=== PATIENT | female | born 1990 | race Caucasian/White ===

== ENCOUNTER 2016-09-02 14:17 | Emergency (ER) | payer MEDICAID ==
[~2016-09-02] VITALS: Ht 154.9 cm; Wt 86.2 kg
[2016-09-02 14:21] VITALS: BP 130/90
--- NOTE | 2016-09-02 15:04 | NUR ---
26/F BIB SELF C/O HEADACHE & COUGH X 2 WEEKS.DENIES N/V/D; SKIN IS PINK/WARM/DRY; AAOX4 WITH EVEN AND STEADY GAIT; LUNGS CLEAR BL; HR EVEN AND REGULAR; PT DENIES ANY FEVER, CP, SOB, OR COUGH AT THIS TIME; PATIENT STATES PAIN OF 9/10 AT THIS TIME; VSS; PATIENT POSITIONED FOR COMFORT; HOB ELEVATED; BEDRAILS UP X2; BED DOWN. ER MD MADE AWARE OF PT STATUS.
[2016-09-02] MEDS ORDERED: ACETAMINOPHEN EXTRA STRENGTH 500 MG TAB PO ONE (15:15)
[2016-09-02 15:39] VITALS: BP 121/88
--- NOTE | 2016-09-02 15:39 | NUR ---
Patient discharged with v/s stable. Written and verbal after care instructions given and explained. Patient alert, oriented and verbalized understanding of instructions. Ambulatory with steady gait. All questions addressed prior to discharge. ID band removed. Patient advised to follow up with PMD. Rx of AZITHROMYCIN, TYLENOL & GUAIATUSSIN AC 100 MG-10 MG/5ML SOLUTION given. Patient educated on indication of medication including possible reaction and side effects. Opportunity to ask questions provided and answered.
== END 2016-09-02 15:39 | disposition home or self-care (01) ==
LOC: MED 14:17
DX: J20.9 Acute bronchitis, unspecified (principal); R03.0 Elevated blood-pressure reading, without diagnosis of hypertension

== ENCOUNTER 2018-01-15 10:30 | Emergency (ER) | payer MEDICAID, OTHER ==
[~2018-01-15] VITALS: Ht 154.9 cm; Wt 72.1 kg
[2018-01-15 10:31] VITALS: BP 119/79
[2018-01-15] MEDS ORDERED: DEXAMETHASONE 10 MG/ML VIAL IVP ONE (11:35)
[2018-01-15] MEDS ORDERED: KETOROLAC 30 MG/ML VIAL IVP ONE (11:35)
[2018-01-15] MEDS ORDERED: METOCLOPRAMIDE 10 MG/2 ML INJ VIAL IVP ONE (11:35)
[2018-01-15] MEDS ORDERED: NACL 0.9% 500 ML IV ONE (11:35)
[2018-01-15] MEDS ORDERED: diphenhydrAMINE 50 MG/ML VIAL IVP ONE (11:35)
[2018-01-15] MEDS ORDERED: IBUPROFEN 600 MG TAB PO ONE (11:55)
[2018-01-15 12:10] LABS: HEMATOCRIT 40.2 % (36-48); HEMOGLOBIN 13.4 g/dL (12.0-16.0); RED BLOOD CELL COUNT(AUTO) 4.71 MIL/uL (4.20-5.40); WHITE BLOOD COUNT (AUTO) 7.7 K/uL (4.8-10.8)
[2018-01-15 12:11] LABS: LYMPHOCYTES % (AUTO) 18.6 % (20.5-51.1); MEAN CORPUSCULAR HEMOGLOBIN 28 pg (27-31); MEAN CORPUSCULAR HGB CONC 33 g/dL (33-37); MEAN CORPUSCULAR VOLUME 85.4 fL (80-94); MONOCYTES % (AUTO) 7.1 % (1.7-9.3); NEUTROPHILS % (AUTO) 68.3 % (42.2-75.2); PLATELET COUNT (AUTO) 246 K/uL (140-450); RED CELL DISTRIBUTION WIDTH 13.4 % (11.6-13.7)
[2018-01-15 12:12] LABS: APPEARANCE,URINE HAZY (CLEAR); BILIRUBIN,URINE NEGATIVE (NEGATIVE); BLOOD, URINE NEGATIVE (NEGATIVE); COLOR,URINE YELLOW (YELLOW); LEUKOCYTE ESTERASE ,URINE 2+ (NEGATIVE); NITRITE, URINE NEGATIVE (NEGATIVE); UGLUCOSE NEGATIVE (NEGATIVE)
[2018-01-15 12:21] LABS: BARBITURATE, URINE NEG. ng/ml (NEG <=200); BENZODIAZEPINE, URINE NEG. ng/mL (NEG <=200)
[2018-01-15 12:25] LABS: ALBUMIN 3.5 g/dL (3.4-5.0); ANION GAP 11.8 (8-16); CARBON DIOXIDE 26.1 mmol/L (21-32); CREATININE 0.9 mg/dL (0.6-1.3); POTASSIUM 3.9 mmol/L (3.5-5.1); TOTAL BILIRUBIN 0.3 mg/dL (0.0-1.0)
[2018-01-15 12:35] VITALS: BP 120/82
[2018-01-15 12:46] LABS: CANNABINOID, URINE NEG. ng/mL (NEG <=50); COCAINE, URINE NEG. ng/mL (NEG <=300); OPIATE, URINE NEG. ng/mL (NEG <=2000); PHENCYCLIDINE SCREEN,URINE NEG. ng/mL (NEG <=25)
[2018-01-15 13:16] LABS: RBC,URINE 0-5 (RARE) /HPF (0-5)
[2018-01-15 13:18] LABS: WBC,URINE 6-15 (FEW) /HPF (0-5)
== END 2018-01-15 12:35 | disposition home or self-care (01) ==
LOC: MED 10:30
DX: G44.209 Tension-type headache, unspecified, not intractable (principal); Z90.89 Acquired absence of other organs
CPT/HCPCS: 36415; 80053; 80305; 81001; 81025; 85025; 87086; 99284

== ENCOUNTER 2020-07-09 05:05 | Emergency (ER) | payer MEDICAID, OTHER ==
[~2020-07-09] VITALS: Ht 154.9 cm; Wt 72.6 kg
--- NOTE | 2020-07-09 05:18 | NUR ---
TO CHAIR A AMBULATORY
--- NOTE | 2020-07-09 05:35 | NUR ---
SEEN AND EXAMINED BY SABRINA
[2020-07-09] MEDS ORDERED: methylPREDNISolone SS 125 MG/2 ML VIAL IM ONE (05:55)
--- NOTE | 2020-07-09 05:58 | NUR ---
MEDICATED PER [facility] ORDER, TOLERATED WELL.
[2020-07-09 06:30] VITALS: BP 113/55
--- NOTE | 2020-07-09 06:30 | NUR ---
Patient discharged with v/s stable. Written and verbal after care instructions given and explained. Patient alert, oriented and verbalized understanding of instructions. Ambulatory with steady gait. All questions addressed prior to discharge. ID band removed. Patient advised to follow up with PMD. Rx of LOTRISONE, PERMETHRIN given. Patient educated on indication of medication including possible reaction and side effects. Opportunity to ask questions provided and answered.
== END 2020-07-09 06:30 | disposition home or self-care (01) ==
LOC: MED 05:05
DX: R21 Rash and other nonspecific skin eruption (principal); L29.9 Pruritus, unspecified
CPT/HCPCS: 96372; 99283; J2930

== ENCOUNTER 2020-07-12 23:32 | Emergency (ER) | payer MEDICAID ==
[~2020-07-12] VITALS: Ht 154.9 cm; Wt 72.6 kg
[2020-07-12 23:35] VITALS: BP 114/79
[2020-07-13 00:20] VITALS: BP 114/79
--- NOTE | 2020-07-13 00:20 | NUR ---
Patient discharged with v/s stable. Written and verbal after care instructions given and explained. Patient alert, oriented and verbalized understanding of instructions. Ambulatory with steady gait. All questions addressed prior to discharge. ID band removed. Patient advised to follow up with PMD. Rx of benadryl, prednisone given. Patient educated on indication of medication including possible reaction and side effects. Opportunity to ask questions provided and answered.
== END 2020-07-13 00:20 | disposition home or self-care (01) ==
LOC: MED 23:32
DX: R21 Rash and other nonspecific skin eruption (principal); L29.9 Pruritus, unspecified
CPT/HCPCS: 99283

== ENCOUNTER 2021-03-28 23:34 | Emergency (ER) | payer MEDICAID, OTHER ==
[~2021-03-28] VITALS: Ht 154.9 cm; Wt 67.1 kg
[2021-03-28 23:41] VITALS: BP 117/79
--- NOTE | 2021-03-29 00:02 | NUR ---
PT IN TRIAGE FOR EKG.
--- NOTE | 2021-03-29 01:29 | NUR ---
PT AMBULATED TO BED 5
[2021-03-29 02:16] LABS: BASOPHILS % (AUTO) 0.3 % (0.0-2.0); EOSINOPHILS # (AUTO) 0.2 K/uL (0-0.4); EOSINOPHILS % (AUTO) 2.8 % (0.0-4.0); HEMATOCRIT 35.7 % (36-48); HEMOGLOBIN 11.5 g/dL (12.0-16.0); LYMPHOCYTES # (AUTO) 1.9 K/uL (2.5-16.5); LYMPHOCYTES % (AUTO) 29.9 % (20.5-51.1); MEAN CORPUSCULAR HEMOGLOBIN 25 pg (27-31); MEAN CORPUSCULAR HGB CONC 32 g/dL (33-37); MEAN CORPUSCULAR VOLUME 78.9 fL (80-94); MONOCYTES # (AUTO) 0.5 K/uL (0.8-1.0); MONOCYTES % (AUTO) 7.5 % (1.7-9.3); NEUTROPHILS # (AUTO) 3.8 K/uL (1.8-7.7); NEUTROPHILS % (AUTO) 59.5 % (42.2-75.2); PLATELET COUNT (AUTO) 260 K/uL (140-450); RED BLOOD CELL COUNT(AUTO) 4.53 MIL/uL (4.20-5.40); RED CELL DISTRIBUTION WIDTH 14.4 % (11.6-13.7); WHITE BLOOD COUNT (AUTO) 6.4 K/uL (4.8-10.8)
[2021-03-29 02:16] LABS: APPEARANCE,URINE CLEAR (CLEAR); BILIRUBIN,URINE NEGATIVE (NEGATIVE); BLOOD, URINE NEGATIVE (NEGATIVE); COLOR,URINE YELLOW (YELLOW); LEUKOCYTE ESTERASE ,URINE NEGATIVE (NEGATIVE); NITRITE, URINE NEGATIVE (NEGATIVE); UGLUCOSE NEGATIVE (NEGATIVE)
[2021-03-29 02:37] LABS: ALBUMIN 3.6 g/dL (3.4-5.0); ANION GAP 13.7 (8-16); CREATININE 0.8 mg/dL (0.6-1.3); FREE T4 (FREE THYROXINE) 0.94 ng/dL (0.76-1.46); POTASSIUM 3.7 mmol/L (3.5-5.1); THYROID STIMULATING HORMONE 5.09 uIU/mL (0.34-3.74); TOTAL BILIRUBIN 0.2 mg/dL (0.0-1.0)
--- NOTE | 2021-03-29 03:24 | NUR ---
Patient discharged with v/s stable. Written and verbal after care instructions given and explained. Patient verbalized understanding. Ambulatory with steady gait. ID band removed. All questions addressed prior to discharge. Advised to follow up with PMD.
[2021-03-29 03:26] VITALS: BP 105/65
== END 2021-03-29 03:24 | disposition home or self-care (01) ==
LOC: MED 23:34
DX: R00.2 Palpitations (principal); R42 Dizziness and giddiness; Z98.890 Other specified postprocedural states
CPT/HCPCS: 36415; 80053; 81003; 81025; 84439; 84443; 84484; 85025; 93005; 99284

== ENCOUNTER 2021-09-28 22:40 | Emergency (ER) | payer OTHER ==
[~2021-09-28] VITALS: Ht 154.9 cm; Wt 66.7 kg
[2021-09-28 23:01] VITALS: BP 112/70
--- NOTE | 2021-09-28 23:24 | NUR ---
PT TAKEN TO BED 5
[2021-09-28 23:25] LABS: BASOPHILS % (AUTO) 0.3 % (0.0-2.0); EOSINOPHILS # (AUTO) 0.1 K/uL (0-0.4); EOSINOPHILS % (AUTO) 1.1 % (0.0-4.0); HEMATOCRIT 34.1 % (36-48); HEMOGLOBIN 10.4 g/dL (12.0-16.0); LYMPHOCYTES # (AUTO) 1.9 K/uL (2.5-16.5); LYMPHOCYTES % (AUTO) 19.9 % (20.5-51.1); MEAN CORPUSCULAR HEMOGLOBIN 21 pg (27-31); MEAN CORPUSCULAR HGB CONC 30 g/dL (33-37); MONOCYTES # (AUTO) 0.8 K/uL (0.8-1.0); NEUTROPHILS # (AUTO) 6.8 K/uL (1.8-7.7); NEUTROPHILS % (AUTO) 70.7 % (42.2-75.2); PLATELET COUNT (AUTO) 313 K/uL (140-450); RED BLOOD CELL COUNT(AUTO) 4.87 MIL/uL (4.20-5.40); RED CELL DISTRIBUTION WIDTH 19.1 % (11.6-13.7); WHITE BLOOD COUNT (AUTO) 9.6 K/uL (4.8-10.8)
[2021-09-28 23:27] LABS: APPEARANCE,URINE CLEAR (CLEAR); BILIRUBIN,URINE NEGATIVE (NEGATIVE); BLOOD, URINE 2+ (NEGATIVE); COLOR,URINE YELLOW (YELLOW); LEUKOCYTE ESTERASE ,URINE NEGATIVE (NEGATIVE); NITRITE, URINE NEGATIVE (NEGATIVE); UGLUCOSE NEGATIVE (NEGATIVE)
[2021-09-28 23:37] LABS: RBC,URINE 20-50 /HPF (0-5); WBC,URINE 0-5 /HPF (0-5)
--- NOTE | 2021-09-28 23:51 | NUR ---
Dr. Mejia examining patient.
--- NOTE | 2021-09-29 00:10 | NUR ---
labs and urine obtained and sent to lab. waiting for pelvic u/s
--- NOTE | 2021-09-29 00:23 | NUR ---
Ultrasound at bedside.
--- NOTE | 2021-09-29 01:48 | NUR ---
WAITING ON RESULTS OF ULTRASOUND. PT STATES 0 . PT RESTING IN BED . AT BEDSIDE
[2021-09-29] MEDS ORDERED: ACETAMINOPHEN EXTRA STRENGTH 500 MG TAB PO ONE (02:20)
--- NOTE | 2021-09-29 02:24 | NUR ---
Patient discharged with v/s stable. Written and verbal after care instructions given and explained. Patient verbalized understanding. Ambulatory with steady gait. All questions addressed prior to discharge. Advised to follow up with PMD.
== END 2021-09-29 02:24 | disposition home or self-care (01) ==
LOC: MED 22:40
DX: O46.8X1 Other antepartum hemorrhage, first trimester (principal); O26.891 Other specified pregnancy related conditions, first trimester; Z3A.01 Less than 8 weeks gestation of pregnancy
CPT/HCPCS: 36415; 76817; 81001; 81025; 84702; 85025; 86900; 86901; 87086; 99284; Q0092